=== PATIENT | female | born 1985 | race Caucasian/White ===

== ENCOUNTER → 2017-01-20 | Outpatient (REF) | payer OTHER ==
[~2017-01-20] MED LIST: ACET50TA PO; IBUP40TA PO; IBUP80TA PO; PRENTAB9 PO
== END ==
LOC: M LAB REF 13:29
PROVIDERS: ATTEND Advanced Practice Midwife
DX: Z12.4 Encounter for screening for malignant neoplasm of cervix (principal)

== ENCOUNTER → 2018-06-08 | Outpatient (REF) | payer OTHER | LOC: M LAB REF 08:58 | DX: N30.01 Acute cystitis with hematuria (principal) ==

== ENCOUNTER → 2019-01-19 | Outpatient (REF) | payer OTHER ==
[~2019-01-19] MED LIST changes: -ACET50TA PO; +IBUP-1114 PO; -IBUP40TA PO; +MAPA500T17 PO; +MAPA500T2 PO
[2019-02-02 13:31] LABS: HPV HYBRID CAPTURE II Negative (NEGATIVE)
== END ==
LOC: M LAB REF 13:38
PROVIDERS: ATTEND Advanced Practice Midwife
DX: Z12.4 Encounter for screening for malignant neoplasm of cervix (principal)
CPT/HCPCS: 87624; G0123

== ENCOUNTER → 2021-10-23 | Outpatient (REF) | payer OTHER | LOC: M SFHCWAGY 10:22 | PROVIDERS: ATTEND Advanced Practice Midwife | DX: Z12.4 Encounter for screening for malignant neoplasm of cervix (principal); Z77.9 Other contact with and (suspected) exposures hazardous to health; B37.3 Candidiasis of vulva and vagina | CPT/HCPCS: 87624; G0123 ==

== ENCOUNTER → 2023-02-25 | Outpatient (REF) | payer OTHER | LOC: M SFHCWAGY 17:41 | PROVIDERS: ATTEND Advanced Practice Midwife | DX: Z12.4 Encounter for screening for malignant neoplasm of cervix (principal) | CPT/HCPCS: 87624; G0123 ==

== ENCOUNTER → 2024-02-28 | Outpatient (REF) | payer OTHER ==
[2024-03-01 14:14] LABS: HPV APTIMA Not Detected (Not Detected)
== END ==
LOC: M SFHCWAGY 17:44
PROVIDERS: ATTEND Advanced Practice Midwife
DX: Z12.4 Encounter for screening for malignant neoplasm of cervix (principal); R87.5 Abnormal microbiological findings in specimens from female genital organs
CPT/HCPCS: 87624; G0123

== ENCOUNTER → 2024-03-16 | Outpatient (CLI) | payer OTHER | LOC: M WHC 15:03 | PROVIDERS: ATTEND Advanced Practice Midwife | DX: Z12.31 Encounter for screening mammogram for malignant neoplasm of breast (principal) ==

== ENCOUNTER → 2024-04-16 | Outpatient (CLI) | payer OTHER | LOC: M WHC 13:49 | PROVIDERS: ATTEND Advanced Practice Midwife | DX: R92.8 Other abnormal and inconclusive findings on diagnostic imaging of breast (principal) | CPT/HCPCS: 76642; 77065; G0279 ==

== ENCOUNTER → 2025-08-09 | Outpatient (REF) | payer OTHER ==
[2025-08-13 12:40] LABS: HPV APTIMA Not Detected (Not Detected)
== END ==
LOC: M PLALAB 09:24
PROVIDERS: ATTEND Advanced Practice Midwife
DX: Z12.4 Encounter for screening for malignant neoplasm of cervix (principal)
CPT/HCPCS: 87624; G0123

== ENCOUNTER → 2025-08-09 | Outpatient (CLI) | payer OTHER | LOC: M WHC 08:22 | PROVIDERS: ATTEND Advanced Practice Midwife | DX: Z12.31 Encounter for screening mammogram for malignant neoplasm of breast (principal) ==